=== PATIENT | female | born 2000 | race African-American/Black ===

== ENCOUNTER 2021-07-28 18:51 | Emergency (ER) | payer BC ==
[~2021-07-28] VITALS: Ht 170.2 cm; Wt 70.5 kg
[2021-07-28 19:11] VITALS: TEMP 103.2
[2021-07-28 19:50] LABS: BASO # 0.1 K/mm3 (0.0-0.2); BASO % 0.4 % (0.0-2.0); EOS % 0.2 % (0.0-4.0); GRAN # 10.6 K/mm3 (1.4-6.5); GRAN % 82.6 % (42.2-75.2); HEMOGLOBIN 11.8 g/dl (12.0-15.0); LYMPH # 1.1 K/mm3 (1.2-3.4); LYMPH % 8.5 % (20.0-51.0); MEAN CELL VOLUME 84 fl (80.0-95.0); MEAN CORPUSCULAR HEMOGLOBIN 30 pg (26-32); MEAN CORPUSCULAR HGB CONC 35 g/dl (33.0-37.0); MEAN PLATELET VOLUME 9.7 fl (7.4-10.4); MONO % 7.8 % (1.7-9.3); PLATELET COUNT 302 K/mm3 (130-400); RED BLOOD COUNT 3.97 M/mm3 (4.10-5.30); REDCELL DISTRIBUTION WIDTH-CV 11.8 % (11.5-14.5)
[2021-07-28 19:54] LABS: HEMATOCRIT 33.4 % (35.0-45.0)
[2021-07-28 20:09] LABS: ALBUMIN 3.4 gm/dL (3.5-5.0); BILIRUBIN,TOTAL 0.9 mg/dL (0.2-1.2); C-REACTIVE PROTEIN 5.26 mg/dL (0.00-0.50); CALCIUM 8.9 mg/dL (8.4-10.2); CREATININE, serum 0.88 mg/dL (0.57-1.11); POTASSIUM 3.7 mmol/L (3.5-4.5); TOTAL PROTEIN 7.4 gm/dL (6.2-8.1)
[2021-07-28] MEDS ORDERED: FLAGYL500 MG PO (23:21)
[2021-07-28] MEDS ORDERED: CEPHALEXIN500 M1 PO (23:21)
[2021-07-28 23:47] VITALS: BP 108/60; PULSE 85
== END 2021-07-28 23:47 | disposition home or self-care (01) ==
LOC: COL.ER 18:51
PROVIDERS: Emergency Medicine
DX: L05.01 Pilonidal cyst with abscess (principal)
CPT/HCPCS: J0696; J1885; J7120; Q9967